=== PATIENT | female | born 1990 | race Two or more races ===

== ENCOUNTER 2023-06-02 22:30 | Observation (INO) | payer OTHER, SELFPAY ==
[2023-06-02 22:51] VITALS: BP 99/56; PULSE 75; RESP 18; TEMP 36.4
[2023-06-02 23:10] LABS: Bilirubin Urine NEGATIVE (NEGATIVE); Blood Urine NEGATIVE (NEGATIVE); Clarity Urine CLEAR (CLEAR); Color Urine LT. YELLOW (YELLOW); Glucose Urine UA NEGATIVE (NEGATIVE); Ketones Urine NEGATIVE (NEGATIVE); Leukocyte Esterase Urine NEGATIVE (NEGATIVE); Nitrite Urine NEGATIVE (NEGATIVE); Protein Urine NEGATIVE (NEG/TRACE); Specific Gravity Urine <=1.005 (1.005-1.025); Urine Microscopic Indicated NO; Urobilinogen Urine 0.2 EU/dL (0.2-1.0); pH Urine 6.5 (5.0-9.0)
[2023-06-02] MEDS: NIFEdipine 10 MG CAPSULE PO (23:56)
[2023-06-03 04:08] VITALS: BP 81/45; PULSE 72; TEMP 36.4
[2023-06-03] MEDS: NIFEdipine 10 MG CAPSULE PO ×2 (04:08→07:41)
[2023-06-03 04:09] VITALS: BP 94/50; PULSE 73
[2023-06-03 04:12] VITALS: BP 88/50; PULSE 71; RESP 16
[2023-06-03 04:15] VITALS: BP 91/54; PULSE 61
[2023-06-03 08:26] VITALS: BP 92/51; PULSE 70
== END 2023-06-03 08:35 | disposition home or self-care (01) ==
LOC: FBCO 22:46 → FBC 22:46
PROVIDERS: Midwife; Admitting Provider Obstetrics & Gynecology; PCP Obstetrics & Gynecology; Visit Provider Obstetrics & Gynecology
DX: O47.02 False labor before 37 completed weeks of gestation, second trimester (principal); Z3A.25 25 weeks gestation of pregnancy
CPT/HCPCS: 36415; 59025; 81003; 86850; 86900; 86901; G0378; G0379

== ENCOUNTER 2023-07-20 13:05 | Outpatient (OUT) | payer OTHER, SELFPAY ==
--- NOTE | 2023-07-20 13:08 | US_ITS ---
[address] [address] Patient Name: DELROY ZARAGOZA MRN: [id number] date: 1990 Sex: F Assigned Patient Location: US Current Patient Location: US Accession/Order Number: [id number] Exam Date: 07/20/2023 13:08 Report Date: 07/20/2023 15:48 At the request of: ALVARO RICE Procedure: US OB growth EXAMINATION: US OB growth HISTORY: LGA COMPARISON: Ultrasound anatomy 04/23/2023 FINDINGS: Heart Rate: 136.0 bpm Number: 1.0 Position: Cephalic Amniotic Fluid Volume: 13.1 cm Maximum Vertical Pocket: 3.8 cm BIOMETRY: BPD: 8.5 cm cm; 34 weeks 2 days; >97% HC: 30.7 cmcm; 34 weeks 1 days; 82% AC: 30.7 cm cm; 34 weeks 5 days; >97% FL: 6.4 cm cm; 32 weeks 6 days; 72% EFW: 2346.3 grams; >97% FL/AC: 20.7 FL/BPD: 74.7 HC/AC: 1.0 GESTATIONAL AGE: Age by EDC: 31 weeks 4 days PA by EDC: 09/17/2023 Age by US: 34 weeks 0 days PA by US: 08/31/2023 US/US OB growth IMPRESSION: 1. Single live intrauterine with growth detailed above. 2. Estimated weight is greater than 97th percentile. Electronically authenticated by: ZEENAT CATHERINE Date: 07/20/2023 15:48
== END 2023-07-20 13:06 | disposition home or self-care (01) ==
LOC: US 13:05
PROVIDERS: PCP Obstetrics & Gynecology; Visit Provider Physician Assistant
DX: Z34.93 Encounter for supervision of normal pregnancy, unspecified, third trimester (principal)
CPT/HCPCS: 76816

== ENCOUNTER 2023-07-27 10:53 | Outpatient (OUT) | payer OTHER, SELFPAY ==
--- NOTE | 2023-07-27 11:03 | US_ITS ---
[address] [address] Patient Name: DELROY ZARAGOZA MRN: [id number] date: 1990 Sex: F Assigned Patient Location: Current Patient Location: [facility] Accession/Order Number: [id number] Exam Date: 07/27/2023 11:10 Report Date: 07/27/2023 17:02 At the request of: KEILY CARREON Procedure: US OB BPP w non-stress EXAMINATION: US OB BPP w non-stress HISTORY: Excessive growth O36.60X0 COMPARISON: No relevant comparison available. TECHNIQUE: Ultrasound biophysical profile was performed in the radiology department. FINDINGS: BREATHING MOVEMENTS: 2.0 GROSS BODY MOVEMENTS: 2.0 TONE: 2.0 QUALITATIVE AMNIOTIC FLUID VOLUME: 2.0 PRESENTATION: CEPHALIC HEART RATE: 135.7 bpm H.B./min AMNIOTIC FLUID VOLUME: 16.1 cm cm GESTATIONAL AGE: 32 weeks 4 days CONCLUSION: Total biophysical profile score: 8.0 Electronically authenticated by: LIZY MADDEN Date: 07/27/2023 17:02
[2023-07-27 11:26] VITALS: BP 104/58; PULSE 90
== END 2023-07-27 12:00 | disposition home or self-care (01) ==
LOC: US 11:06 → FBC 11:06
PROVIDERS: Visit Provider Obstetrics & Gynecology
DX: O36.63X0 Maternal care for excessive fetal growth, third trimester, not applicable or unspecified (principal); Z3A.32 32 weeks gestation of pregnancy
CPT/HCPCS: 76818

== ENCOUNTER 2023-07-30 10:32 | Outpatient (OUT) | payer OTHER, SELFPAY ==
[2023-07-30 10:40] VITALS: BP 106/65; PULSE 90
== END 2023-07-30 11:05 | disposition home or self-care (01) ==
LOC: FBCO 10:32 → FBC 10:33
PROVIDERS: Visit Provider Midwife
DX: O36.63X0 Maternal care for excessive fetal growth, third trimester, not applicable or unspecified (principal); Z3A.00 Weeks of gestation of pregnancy not specified
CPT/HCPCS: 59025

== ENCOUNTER 2023-08-04 08:08 | Outpatient (OUT) | payer OTHER, SELFPAY ==
--- NOTE | 2023-08-04 08:10 | US_ITS ---
[address] [address] Patient Name: DELROY ZARAGOZA MRN: [facility]:[id number] date: 1990 Sex: F Assigned Patient Location: [facility] Current Patient Location: Accession/Order Number: [id number] Exam Date: 08/04/2023 08:12 Report Date: 08/04/2023 09:26 At the request of: KEILY CARREON Procedure: US OB BPP w non-stress EXAMINATION: US OB BPP w non-stress HISTORY: Excessive growth O36.60X0 COMPARISON: No relevant comparison available. TECHNIQUE: Ultrasound biophysical profile was performed in the radiology department. FINDINGS: BREATHING MOVEMENTS: 2.0 GROSS BODY MOVEMENTS: 2.0 TONE: 2.0 QUALITATIVE AMNIOTIC FLUID VOLUME: 2.0 PRESENTATION: CEPHALIC HEART RATE: 137.8 bpm H.B./min AMNIOTIC FLUID VOLUME: 17.5 cm cm GESTATIONAL AGE: 34 weeks 3 days CONCLUSION: Total biophysical profile score: 8.0 Electronically authenticated by: LIZY MADDEN Date: 08/04/2023 09:26
[2023-08-04 08:56] VITALS: BP 100/63; PULSE 72
== END 2023-08-04 09:19 | disposition home or self-care (01) ==
LOC: US 08:09 → FBC 08:10
PROVIDERS: Visit Provider Obstetrics & Gynecology
DX: O36.63X0 Maternal care for excessive fetal growth, third trimester, not applicable or unspecified (principal); Z3A.34 34 weeks gestation of pregnancy
CPT/HCPCS: 76818

== ENCOUNTER 2023-08-07 09:55 | Inpatient (IN) | payer OTHER, SELFPAY ==
[2023-08-07] VITALS (36 sets, daily range): BP systolic 94–127; BP diastolic 51–78; PULSE 60–102; RESP 16; TEMP 36.4–37.2
[2023-08-07] MEDS: AMPICILLIN SODIUM 2,000 MG in 0.9 % SODIUM CHLORIDE 100 ML 200 MG IV (10:38)
[2023-08-07] MEDS: 0.9 % SODIUM CHLORIDE 1,000 ML 999 ML IV (10:38)
[2023-08-07 10:59] LABS: Hematocrit 30.5 % (36.0-48.0); Hemoglobin 10.2 g/dL (12.0-16.0); Mean Corpuscular HGB Conc 33.4 g/dL (29.9-35.2); Mean Corpuscular Hemoglobin 29.4 pg (26.7-34.0); Mean Corpuscular Volume 87.9 fL (81.0-99.0); Mean Platelet Volume 9.4 fL (9.5-13.5); Platelet Count 345 10^3/uL (150-450); Red Blood Count 3.47 10^6/uL (4.20-5.40); Red Cell Distribution Width 12.6 % (11.0-15.0); White Blood Count 15.6 10^3/uL (4.0-11.0)
[2023-08-07] MEDS: 0.9 % SODIUM CHLORIDE 1,000 ML 125 ML IV ×2 (11:48→15:55)
[2023-08-07 11:54] LABS: Amphetamine Screen Urine NEGATIVE (NEGATIVE); Barbiturates Screen Urine NEGATIVE (NEGATIVE); Benzodiazepines Screen Urine NEGATIVE (NEGATIVE); Buprenorphine Screen Urine NEGATIVE (NEGATIVE); Cannabinoid Screen Urine POSITIVE (NEGATIVE); Cocaine Screen Urine NEGATIVE (NEGATIVE); Methadone Screen Urine NEGATIVE (NEGATIVE); Methamphetamines Screen Urine NEGATIVE (NEGATIVE); Opiate Screen Urine NEGATIVE (NEGATIVE); Oxycodone Screen Urine NEGATIVE (NEGATIVE); Phencyclidine Screen Urine NEGATIVE (NEGATIVE); Tricyclic Antidepressant Urine NEGATIVE (NEGATIVE)
[2023-08-07] MEDS: BETAMETHASONE ACE/BETAMETHASONE SOD PHOS 30 MG/5 ML 12 MG IM (12:03)
[2023-08-07] MEDS: ROPIVACAINE HCL/PF 400 MG/200 ML PREMIX 6 MG EPIDURAL (12:31)
[2023-08-07] MEDS: FENTANYL CITRATE/PF 100 MCG/2 ML VIAL EPIDURAL ×2 (12:31→12:32)
[2023-08-07] MEDS: AMPICILLIN SODIUM 1,000 MG in 0.9 % SODIUM CHLORIDE 50 ML 100 MG IV (14:17)
--- NOTE | 2023-08-07 16:38 | PM.OBPRCVD ---
Procedure events: Labor < 37 Weeks Intrapartal events: None Induction method: none Delivery augmentation: rupture of membranes and pitocin Delivery monitor: external FHT and external uterine Route of delivery: Episiotomy Description: none Laceration description: none Estimated blood loss (mL): 200 Anesthesia type: Epidural Disposition: floor Delivery date: 08/07/23 Gender: male presentation: vertex Placental delivery description: Spontaneous cord description: 3 Vessels
--- NOTE | 2023-08-07 16:50 | PC.NURSE ---
epidural catheter removed with tip intact
[2023-08-07] MEDS: IBUPROFEN 600 MG TABLET PO (18:24)
--- NOTE | 2023-08-07 20:22 | PC.NURSE ---
Patient to SCN to see .
--- NOTE | 2023-08-07 21:26 | PC.NURSE ---
Report given to Alonzo Gaspar RN.
[2023-08-07] MEDS: TEMAZEPAM 15 MG CAPSULE PO (22:19)
[2023-08-08 02:57] VITALS: BP 104/60; PULSE 45
[2023-08-08 03:00] VITALS: PULSE 45; RESP 16; TEMP 36.6
[2023-08-08 06:48] LABS: Basophils Percent Auto 0.2 % (0.2-2.0); Eosinophils Percent Auto 0.1 % (0.9-7.0); Hematocrit 26.9 % (36.0-48.0); Hemoglobin 8.9 g/dL (12.0-16.0); Immature Granulocytes Abs Auto 0.17 10^3/uL (0.00-0.03); Immature Granulocytes Pct Auto 0.9 % (0.0-0.5); Lymphocytes Absolute Auto 1.2 10^3/uL (1.2-3.8); Lymphocytes Percent Auto 6.7 % (20.5-60.0); Mean Corpuscular HGB Conc 33.1 g/dL (29.9-35.2); Mean Corpuscular Hemoglobin 29.4 pg (26.7-34.0); Mean Corpuscular Volume 88.8 fL (81.0-99.0); Mean Platelet Volume 9.3 fL (9.5-13.5); Monocytes Absolute Auto 1.4 10^3/uL (0.3-0.8); Monocytes Percent Auto 7.8 % (1.7-12.0); Neutrophils Absolute Auto 15.4 10^3/uL (1.4-6.5); Neutrophils Percent Auto 84.3 % (43.0-75.0); Platelet Count 317 10^3/uL (150-450); Red Blood Count 3.03 10^6/uL (4.20-5.40); Red Cell Distribution Width 12.6 % (11.0-15.0); White Blood Count 18.3 10^3/uL (4.0-11.0)
[2023-08-08 07:08] LABS: HIV Ab/p24 Ag Screen Non Reactive (Non Reactive)
--- NOTE | 2023-08-08 07:18 | W.PC.ACHO ---
Registration Status: ADM IN Primary Language: Argentine Preferred Language: Argentine Active Medications Generic Name Dose Route Start Last Admin Trade Name Freq PRN Reason Stop Dose Admin Acetaminophen 650 mg 08/07/23 16:37 Acetaminophen 325 Mg Tablet PO Q6H PRN Mild Pain Al Hydroxide/Mg Hydroxide 2,400 mg 08/07/23 16:37 Magnesium Hydroxide 2,400 Mg/10 Ml Oral.Susp PO Q6H PRN Dyspepsia Benzocaine/Menthol 1 applic 08/07/23 16:37 Benzocaine/Menthol 85 Gram [place] Bottle TOPICAL Q2H PRN Pain Carboprost Tromethamine 250 mcg 08/07/23 10:20 Carboprost Tromethamine 250 Mcg/Ml 1 Ml Vial IM 08/08/23 17:00 Q15M PRN Bleeding Diphtheria/Pertussis/Tetanus Vacc 0.5 ml 08/09/23 09:00 Adacel Diph,Pertuss(Acell),Tet Vac/Pf 0.5 Ml Adult Syringe IM 08/09/23 09:01 .ONCE ONE Docusate Sodium 100 mg 08/08/23 09:00 Docusate Sodium 100 Mg Capsule PO BID YVROSE Sodium Chloride 1,000 mls @ 125 mls/hr 08/07/23 10:30 08/07/23 15:55 Sodium Chloride 0.9% 1,000 Ml IV 125 mls/hr .Q8H YVROSE Administration Ibuprofen 600 mg 08/07/23 16:37 08/07/23 18:24 Ibuprofen 600 Mg Tablet PO 600 mg Q6H PRN Administration Moderate Pain Measles/Mumps/Rubella Vaccine Live 0.5 ml 08/09/23 09:00 Measles,Mumps,Rubella Vacc/Pf 0.5 Ml Vial SQ 08/09/23 09:01 .ONCE ONE Methylergonovine Maleate 0.2 mg 08/07/23 10:20 Methylergonovine Maleate 0.2 Mg Tablet PO 08/08/23 17:00 Q4H PRN Uterine Contractility/Contract Methylergonovine Maleate 0.2 mg 08/07/23 10:20 Methylergonovine Maleate 0.2 Mg/Ml Ampule IM 08/08/23 17:00 ONCE PRN Uterine Contractility/Contract Misoprostol 600 mcg 08/07/23 10:20 Misoprostol 100 Mcg Tablet PO 08/08/23 17:00 ONCE PRN Uterine Bleeding Misoprostol 800 mcg 08/07/23 10:20 Misoprostol 100 Mcg Tablet SL 08/08/23 17:00 ONCE PRN Uterine Bleeding Misoprostol 1,000 mcg 08/07/23 10:20 Misoprostol 100 Mcg Tablet [place] 08/08/23 17:00 ONCE PRN Uterine Bleeding Ondansetron HCl 4 mg 08/07/23 10:20 Ondansetron Pf 4 Mg/2 Ml Vial IV Q6H PRN Nausea And Vomiting Ondansetron HCl 4 mg 08/07/23 10:20 Ondansetron 4 Mg Rapdis Tablet SL Q6H PRN Nausea And Vomiting Senna 17.2 mg 08/07/23 20:00 Sennosides 8.6 Mg Tablet PO QHS PRN Constipation Simethicone 80 mg 08/07/23 16:37 Simethicone 80 Mg Tab.Chew PO QID PRN Abdominal Distention Temazepam 15 mg 08/07/23 16:37 08/07/23 22:19 Temazepam 15 Mg Capsule PO 15 mg QHS PRN Administration Sleep Witch Angela/Glycerin 1 pad 08/07/23 16:37 Glycerin/Witch Angela Pads TOPICAL Q2H PRN Pain Diet Category Date Time Status Regular Consistency Diet Diet 08/07/23 Dinner Active IV Insertion/Site Date of IV Line Insertion [ 08/07/23 Short PIV (<1.75 in) left Forearm] IV Insertion Time [Short PIV ( 10:35 <1.75 in) left Forearm] Neurology Patient orientation (short person,place,time,situation list) Respiratory Oxygen Delivery Method Room Air Oxygen Delivery Method Room Air Oxygen Delivery Method Room Air Cardiology Heart Sounds Strong,Regular Renal Bladder Pattern Continent Bladder Pattern Continent
[2023-08-08 08:01] VITALS: BP 97/52; PULSE 51
--- NOTE | 2023-08-08 08:22 | P.DS_ITS ---
DS: Providers Provider Date of admission: 08/07/23 10:20 Primary care physician: Non-Staff PhysicianMD Admitting clinician: Juve Knight Attending physician on admission: Juve Knight Attending physician on discharge: KATHY MAGUIRE Discharging clinician: KATHY MAGUIRE Anticipated date of discharge: 08/08/23 DS: Diagnosis Discharge Diagnosis (1) Vaginal delivery: Plan s/p OB - DS: Summary Hospital Course Time spent discussing smoking cessation with patient: 3 to 10 minutes Peripartum Data - Vaginal Delivery Laceration description: none Complications complications: none Infant Delivery method: spontaneous vaginal delivery Gender: male Discharge plan: home Status at Discharge Cognitive/behavioral status at discharge: patient is anxious to be discharged. Baby was transferred to [facility] and she wants to leave and go be with him. Functional status at discharge: independent ambulation Time Spent with Patient Time attestation: Total time spent providing and/or coordinating discharge services: Time spent: less than 30 minutes Exam Constitutional Vital Signs, click to edit/add: Last Vital Signs Temp 97.9 F 08/08/23 03:00 Pulse 51 L 08/08/23 08:01 Resp 16 08/08/23 03:00 BP 97/52 08/08/23 08:01 O2 Del Method Room Air 08/08/23 03:00 Documenting provider has reviewed patient's vital signs: yes Common normals: no apparent distress, oriented x3 and no limitations General appearance: cooperative, comfortable and well kempt HENAL Common normals: normocephalic Chest Common normals: inspection of chest normal Respiratory Common normals: normal respiratory effort, no retractions and clear to auscultation bilaterally Cardio Common normals: regular rate, regular rhythm and no murmurs Rate: regular rate Rhythm: regular rhythm GI Common normals: Normal to inspection, nondistended, normoactive bowel sounds present, soft to palpation and non-tender Inspection: normal to inspection Auscultation: normoactive bowel sounds Palpation: soft Common normals: external appearance normal Back & Pelvis Common normals: no CVA tenderness Extremity Common normals: normal to inspection and full ROM Neuro Common normals: oriented x3 Psych Common normals: mental status grossly normal, thought process normal, cooperative and affect normal DS: Data Data Completed and Pending Labs on day of discharge: Labs from last 24 hours 08/08/23 08/07/23 08/07/23 06:45 10:50 10:30 WBC 18.3 H 15.6 H RBC 3.03 L 3.47 L Hgb 8.9 L 10.2 L Hct 26.9 L 30.5 L MCV 88.8 87.9 MCH 29.4 29.4 MCHC 33.1 33.4 RDW 12.6 12.6 Plt Count 317 345 MPV 9.3 L 9.4 L Neut % (Auto) 84.3 H Lymph % (Auto) 6.7 L [place] % (Auto) 7.8 Eos % (Auto) 0.1 L Baso % (Auto) 0.2 Neut # (Auto) 15.4 H Lymph # (Auto) 1.2 [place] # (Auto) 1.4 H Eos # (Auto) 0.0 Baso # (Auto) 0.0 Abs Immat Gran (auto) 0.17 H Imm/Tot Granulo (auto) 0.9 H Urine Opiates Screen Negative Ur Buprenorphine Scrn Negative Ur Oxycodone Screen Negative Urine Methadone Screen Negative Ur Propoxyphene Screen Negative Ur Barbiturates Screen Negative U Tricyclic Antidepress Negative Ur Phencyclidine Scrn Negative Ur Amphetamines Screen Negative U Methamphetamines Scrn Negative U Benzodiazepines Scrn Negative Urine Cocaine Screen Negative U Cannabinoids Screen Positive A HIV 1&2 Ag/Ab, 4th Gen Non reactive Blood Type O Positive Antibody Screen Negative Discharge Plan Discharge Disposition: Home, Self-Care Condition: Good Discharge Medications: New ibuprofen 800 mg tablet 800 mg PO Q8H PRN (Reason: Moderate Pain) 14 Days Qty: 30 1RF ferrous sulfate 325 mg (65 mg iron) tablet 325 mg PO BID 30 Days Qty: 60 2RF Continued prenat.vits,priti,wtp-[id number]-quhci .ROUTE Discontinued lurasidone [Latuda] .Route ondansetron 4 mg tablet,disintegrating 4 mg PO TID-QID PRN (Reason: nausea and vomiting) Activity: increase activity as tolerated Diet: regular diet Patient Instructions: Vaginal Delivery (DC) Activity Restrictions/Additional Instructions: nothing in the vagina for 6 weeks Forms: Portal Instructions Follow Up Appointments: please follow up with Dr Knight in 6 weeks
[2023-08-08] MEDS: IBUPROFEN 600 MG TABLET PO (09:03)
[2023-08-08] MEDS: DOCUSATE SODIUM 100 MG CAPSULE PO (09:04)
--- NOTE | 2023-08-08 09:38 | PM.OBPN ---
OB - PN: Subj Subjective Patient comments: no complaints and pain well controlled Exam Constitutional Vital Signs, click to edit/add: Last Vital Signs Temp 97.9 F 08/08/23 03:00 Pulse 51 L 08/08/23 08:01 Resp 16 08/08/23 03:00 BP 97/52 08/08/23 08:01 O2 Del Method Room Air 08/08/23 03:00 Documenting provider has reviewed patient's vital signs: yes Common normals: no apparent distress Respiratory Common normals: normal respiratory effort and clear to auscultation bilaterally Cardio Common normals: regular rate and regular rhythm GI Common normals: Normal to inspection, nondistended, normoactive bowel sounds present Extremity Common normals: no clubbing, cyanosis or edema and no calf tenderness Results Labs Labs: Short CBC 08/07/23 08/08/23 Range/Units 10:50 06:45 WBC 15.6 H 18.3 H (4.0-11.0) 10^3/uL Hgb 10.2 L 8.9 L (12.0-16.0) g/dL Hct 30.5 L 26.9 L (36.0-48.0) % Plt Count 345 317 (150-450) 10^3/uL OB - PN: A/P Assessment and Plan (1) Vaginal delivery: Plan - Vaginal Delivery day: 1 Plan: routine care, discharge home and follow up 6 weeks Time Spent with Patient Time: Total time spent is greater than 50% in coordination of care (as documented) at patient's floor/unit and/or counseling patient: Total time spent with greater than 50% in coordination of care (as documented) at patient's floor/unit and/or counseling patient: less than 15 minutes
--- NOTE | 2023-08-08 09:40 | PM.OBHP ---
OB - H&P: HPI History of Present Illness Chief complaint: CONTRACTIONS 34 WKS : 3 Para: 2 Gestational age based on last menstrual period: 34 2/7wks Narrative: active labor, 6cm, bulgy bag, 100, -1 History of Present Dating criteria: LMP confirmed by 1st trimester US care: good care Ultrasounds: normal 1st trimester US complications: labor Medical complications OB: none Labs Rubella: immune RPR/VDLR: nonreactive GBS status: unknown HBsAG: negative Review of Systems ROS Status of ROS 10 or more systems reviewed and unremarkable except as noted in history and below [facility] Medical History Surgical History (~01/2007) Meds Home Medications and Allergies Home Medications Medication Instructions Recorded Confirmed Type prenat.vits,priti,mux-[id number] .ROUTE 06/03/23 History ferrous sulfate 325 mg (65 mg 325 mg PO BID anemia 30 days #60 08/08/23 Rx iron) tablet tabs ibuprofen 800 mg tablet 800 mg PO Q8H PRN Moderate Pain 14 08/08/23 Rx days #30 tabs Allergies Allergy/AdvReac Type Severity Reaction Status Date / Time No Known Drug Allergies Allergy Verified 06/02/23 23:00 Exam Constitutional Vital Signs, click to edit/add: Last Vital Signs Temp 97.9 F 08/08/23 03:00 Pulse 51 L 08/08/23 08:01 Resp 16 08/08/23 03:00 BP 97/52 08/08/23 08:01 O2 Del Method Room Air 08/08/23 03:00 Documenting provider has reviewed patient's vital signs: yes Common normals: no apparent distress Respiratory Common normals: normal respiratory effort and clear to auscultation bilaterally Cardio Common normals: regular rate and regular rhythm GI Common normals: Normal to inspection, nondistended, normoactive bowel sounds present Extremity Common normals: no clubbing, cyanosis or edema and no calf tenderness Results Labs Labs: Short CBC 08/07/23 08/08/23 Range/Units 10:50 06:45 WBC 15.6 H 18.3 H (4.0-11.0) 10^3/uL Hgb 10.2 L 8.9 L (12.0-16.0) g/dL Hct 30.5 L 26.9 L (36.0-48.0) % Plt Count 345 317 (150-450) 10^3/uL OB - A/P Assessment and Plan (1) Vaginal delivery: (2) labor in third trimester with delivery: Assessment and Plan: unable to transfer dt advanced dilation, iv, iv abx, routine labs, cont efm, pit augmentation, with arom, celestone given, greater than 34wks not a candidate for magnesium Plan see above
[2023-08-15 03:07] LABS: Cannabinoid Positive (.); Carboxy THC Conf, MS, UR 79 ng/mL (Cutoff=10)
== END 2023-08-08 09:40 | disposition home or self-care (01) | DRG 806 ==
PROVIDERS: Admitting Provider Midwife; Visit Provider Obstetrics & Gynecology
DX: O60.14X0 Preterm labor third trimester with preterm delivery third trimester, not applicable or unspecified (principal); O99.324 Drug use complicating childbirth; Z37.0 Single live birth; Z3A.34 34 weeks gestation of pregnancy; O99.334 Smoking (tobacco) complicating childbirth; F17.210 Nicotine dependence, cigarettes, uncomplicated; F12.90 Cannabis use, unspecified, uncomplicated
CPT/HCPCS: 36415; 51702; 80307; 80349; 85025; 85027; 86850; 86900; 86901; 87389; 96372; 96374; 96375; 96376; J0702